=== PATIENT | female | born 1990 | race Caucasian/White ===

== ENCOUNTER 2018-01-16 09:18 | Emergency (ER) | payer MEDICAID ==
[2018-01-16 10:30] LABS: ADD MAN DIFF? NO
[2018-01-16 10:35] LABS: WHITE BLOOD COUNT 5.4 10^3/ul (4.8-10.8)
[2018-01-16 10:35] LABS: BASOPHILS % 0.2 % (0.0-2.0); EOSINOPHILS # 0.1 10^3/ul (0.0-0.5); EOSINOPHILS % 1.5 % (0.0-7.0); HEMATOCRIT 34.4 % (37.0-47.0); HEMOGLOBIN 11.3 g/dl (12.0-16.0); LYMPHOCYTES # 1.5 10^3/ul (0.8-2.9); MEAN CORPUSCULAR HEMOGLOBIN 31.4 pg (29.0-33.0); MEAN CORPUSCULAR HGB CONC 32.8 g/dl (32.0-37.0); MEAN CORPUSCULAR VOLUME 95.6 fl (82.0-101.0); MEAN PLATELET VOLUME 9.1 fl (7.4-10.4); MONOCYTE # 0.4 10^3/ul (0.3-0.9); MONOCYTES % 7.2 % (0.0-11.0); NEUTROPHIL # 3.5 10^3/ul (1.6-7.5); NEUTROPHILS % 63.9 % (39.0-77.0); PLATELET COUNT 327 10^3/UL (140-415); RED CELL DISTRIBUTION WIDTH 12.8 % (11.5-14.5)
[2018-01-16 10:39] LABS: ADD UMIC YES; UR ASCORBIC ACID NEGATIVE (NEGATIVE); UR BACTERIA MODERATE /HPF (NONE SEEN); UR BILIRUBIN (Dip) NEGATIVE (NEGATIVE); UR BLOOD (Dip) 3+ mg/dL (NEGATIVE); UR CLARITY CLOUDY (CLEAR); UR COLOR YELLOW (YELLOW); UR GLUCOSE (Dip) NEGATIVE (NEGATIVE); UR KETONES (Dip) NEGATIVE (NEGATIVE); UR LEUKOCYTE ESTERASE (Dip) 1+ Leu/ul (NEGATIVE); UR NITRITE (Dip) NEGATIVE (NEGATIVE); UR RBC > 182 /HPF (0-5); UR SQUAMOUS EPITHELIAL CELL MANY /HPF (FEW); UR TOTAL PROTEIN (Dip) 1+ mg/dl (NEGATIVE); UR UROBILINOGEN (Dip) NEGATIVE (NEGATIVE); UR WBC 11 /HPF (0-5)
== END 2018-01-16 12:21 | disposition home or self-care (01) ==
LOC: FTE 09:18
DX: O23.41 Unspecified infection of urinary tract in pregnancy, first trimester (principal); Z3A.01 Less than 8 weeks gestation of pregnancy
CPT/HCPCS: 36415; 76801; 81001; 84702; 85025; 86900; 86901; 87086; 99284-25

== ENCOUNTER 2018-04-19 12:18 | Emergency (ER) | payer MEDICAID | END 2018-04-19 15:05 | disposition home or self-care (01) | LOC: FTE 12:18 | DX: R22.0 Localized swelling, mass and lump, head (principal); R40.2412 Glasgow coma scale score 13-15, at arrival to emergency department | CPT/HCPCS: 99282; Z7502 ==

== ENCOUNTER 2018-08-27 13:31 | Inpatient (IN) | payer MEDICAID ==
[2018-08-27] MEDS ORDERED: OXYTOCIN 30 UNITS/LR 500 ML IV ×2 (14:00→20:00)
[2018-08-27] MEDS ORDERED: MISOPROSTOL 200 MCG TAB PR ×2 (14:00→20:00)
[2018-08-27] MEDS ORDERED: CARBOPROST 250 MCG INJ IM ×2 (14:00→20:00)
[2018-08-27] MEDS ORDERED: METHYLERGONOVINE 0.2 MG INJ IM ×2 (14:00→20:00)
[2018-08-27 14:17] LABS: ADD MAN DIFF? NO
[2018-08-27 14:23] LABS: WHITE BLOOD COUNT 5.3 10^3/ul (4.8-10.8)
[2018-08-27 14:23] LABS: BASOPHILS % 0.2 % (0.0-2.0); EOSINOPHILS # 0.1 10^3/ul (0.0-0.5); EOSINOPHILS % 1.1 % (0.0-7.0); HEMOGLOBIN 10.8 g/dl (12.0-16.0); LYMPHOCYTES # 1.3 10^3/ul (0.8-2.9); LYMPHOCYTES % 24.7 % (15.0-51.0); MEAN CORPUSCULAR HEMOGLOBIN 32.4 pg (29.0-33.0); MEAN CORPUSCULAR HGB CONC 33.8 g/dl (32.0-37.0); MEAN CORPUSCULAR VOLUME 96.1 fl (82.0-101.0); MEAN PLATELET VOLUME 9.5 fl (7.4-10.4); MONOCYTE # 0.4 10^3/ul (0.3-0.9); MONOCYTES % 7.9 % (0.0-11.0); NEUTROPHIL # 3.5 10^3/ul (1.6-7.5); NEUTROPHILS % 65.5 % (39.0-77.0); PLATELET COUNT 279 10^3/UL (140-415); RED BLOOD COUNT 3.33 10^6/ul (4.20-5.40); RED CELL DISTRIBUTION WIDTH 13.7 % (11.5-14.5)
[2018-08-27 14:40] LABS: INR 0.89; PARTIAL THROMBOPLASTIN TIME 25.2 Sec (23.0-35.0); PROTIME 12.1 Sec (11.9-14.9); PT RATIO 0.9
[2018-08-27] MEDS: LACTATED RINGER'S 1,000 ML IV ×2 (14:43→21:59)
[2018-08-27 15:08] LABS: HEPATITIS B SURFACE ANTIGEN NEGATIVE (NEGATIVE)
[2018-08-27] MEDS: AZITHROMYCIN 500MG/NS (PMX) 250 ML IV (15:24)
[2018-08-27] MEDS ORDERED: morphine SULFATE/PF (10 MG/10 ML) INJ (15:35)
[2018-08-27] MEDS ORDERED: FENTAnyl 50 MCG/ML VIAL (15:35)
[2018-08-27] MEDS ORDERED: DEXAMETHASONE 4 MG/ML 1 ML INJ (15:50)
[2018-08-27] MEDS ORDERED: ONDANSETRON 4 MG INJ (15:50)
[2018-08-27] MEDS ORDERED: PHENYLephrine (100 MCG/ML) 10ML SYG (15:50)
[2018-08-27 16:23] LABS: RAPID PLASMA REAGIN NONREACTIVE (NR)
[2018-08-27] MEDS: ACETAMINOPHEN 500 MG TAB PO (17:16)
[2018-08-27] MEDS ORDERED: NALOXONE (0.4 MG/ML) INJ IV (17:30)
[2018-08-27] MEDS ORDERED: ZOLPIDEM 5 MG TAB PO (17:30)
[2018-08-27] MEDS ORDERED: HYDROmorphONE 0.5 MG/0.5 ML SYG IV (17:30)
[2018-08-27] MEDS ORDERED: DIPHENHYDRAMINE 50 MG INJ IV (17:30)
[2018-08-27] MEDS ORDERED: ONDANSETRON 4 MG INJ IV (17:30)
[2018-08-27] MEDS: KETOROLAC 30 MG INJ IV ×2 (17:53→22:00)
[2018-08-27] MEDS: OXYTOCIN 30 UNITS/LR 500 ML IV (17:55)
[2018-08-27] MEDS: CEFAZOLIN 2 GM/50 ML (PMX) 50 ML IVPB ×2 (18:52→21:59)
[2018-08-27] MEDS ORDERED: NA PHOSPHATE/BIPHOS 133 ML ENEMA PR (20:00)
[2018-08-27] MEDS: SENNA/DOCUSATE NA (8.6MG/50MG) TAB PO (21:00)
[2018-08-28] MEDS: CLINDAMYCIN 300 MG CAP PO ×4 (00:50→20:35)
[2018-08-28] MEDS: CEFAZOLIN 2 GM/50 ML (PMX) 50 ML IVPB ×2 (06:28→14:00)
[2018-08-28] MEDS: HYDROmorphONE 0.5 MG/0.5 ML SYG IV (06:48)
[2018-08-28 07:41] LABS: ADD MAN DIFF? NO
[2018-08-28 07:50] LABS: BASOPHILS % 0.1 % (0.0-2.0); EOSINOPHILS % 0.1 % (0.0-7.0); HEMATOCRIT 29.8 % (37.0-47.0); HEMOGLOBIN 9.8 g/dl (12.0-16.0); LYMPHOCYTES # 2.2 10^3/ul (0.8-2.9); LYMPHOCYTES % 19.2 % (15.0-51.0); MEAN CORPUSCULAR HEMOGLOBIN 31.7 pg (29.0-33.0); MEAN CORPUSCULAR HGB CONC 32.9 g/dl (32.0-37.0); MEAN CORPUSCULAR VOLUME 96.4 fl (82.0-101.0); MEAN PLATELET VOLUME 9.4 fl (7.4-10.4); MONOCYTE # 0.7 10^3/ul (0.3-0.9); MONOCYTES % 6.3 % (0.0-11.0); NEUTROPHIL # 8.4 10^3/ul (1.6-7.5); NEUTROPHILS % 73.9 % (39.0-77.0); PLATELET COUNT 246 10^3/UL (140-415); RED BLOOD COUNT 3.09 10^6/ul (4.20-5.40); RED CELL DISTRIBUTION WIDTH 13.7 % (11.5-14.5)
[2018-08-28 07:50] LABS: WHITE BLOOD COUNT 11.4 10^3/ul (4.8-10.8)
[2018-08-28] MEDS: SENNA/DOCUSATE NA (8.6MG/50MG) TAB PO ×2 (09:06→20:35)
[2018-08-28] MEDS: LACTATED RINGER'S 1,000 ML IV (10:09)
[2018-08-28] MEDS: BISACODYL 10 MG SUPP PR (11:30)
[2018-08-28] MEDS: LANOLIN HPA 1 PKT TOP (16:36)
[2018-08-28] MEDS: OXYCODONE/ACETAMINOPHEN (5/325) TAB PO (16:36)
[2018-08-28] MEDS: IBUPROFEN 800 MG TAB PO (22:28)
[2018-08-29] MEDS: CLINDAMYCIN 300 MG CAP PO ×4 (02:03→20:46)
[2018-08-29] MEDS: IBUPROFEN 800 MG TAB PO ×3 (05:49→15:46)
[2018-08-29] MEDS: SENNA/DOCUSATE NA (8.6MG/50MG) TAB PO ×2 (09:00→20:46)
[2018-08-29] MEDS: HYDROCODONE/APAP (5/325) TAB PO (09:07)
[2018-08-29] MEDS ORDERED: ACETAMINOPHEN 325 MG TAB PO (19:00)
[2018-08-30] MEDS: CLINDAMYCIN 300 MG CAP PO ×3 (01:26→11:51)
[2018-08-30] MEDS: IBUPROFEN 800 MG TAB PO ×3 (01:26→13:45)
[2018-08-30] MEDS: MEASLES,MUMPS,RUBELLA VACCINE INJ SC* (09:00)
[2018-08-30] MEDS: DIPHTH/TET/ACEL PERTUSS (ADULT) 0.5 ML VIAL IM* (09:00)
[2018-08-30] MEDS: SENNA/DOCUSATE NA (8.6MG/50MG) TAB PO (09:11)
== END 2018-08-30 15:10 | disposition home or self-care (01) | DRG 785 ==
LOC: L-D 13:31 → PP1 19:31
PROVIDERS: Obstetrics & Gynecology
PROC: 10D00Z1 Extraction of Products of Conception, Low, Open Approach (ICD-10-PCS; principal; 2018-08-27 15:30)
PROC: 0UT70ZZ Resection of Bilateral Fallopian Tubes, Open Approach (ICD-10-PCS; 2018-08-27 15:30)
DX: O65.5 Obstructed labor due to abnormality of maternal pelvic organs (principal); O34.211 Maternal care for low transverse scar from previous cesarean delivery; Z3A.39 39 weeks gestation of pregnancy; Z37.0 Single live birth; Z30.2 Encounter for sterilization
CPT/HCPCS: 85025; 85610; 85730; 86592; 86850; 86900; 86901; 87340; 88302; 99464